=== PATIENT | male | born 1950 | race Caucasian/White ===

== ENCOUNTER → 2023-08-20 08:06 | Outpatient (REF) | payer OTHER, SELFPAY | LOC: RCS 08:06 | PROVIDERS: ATTENDING PHYSICIAN Internal Medicine Cardiovascular Disease; FAMILY PHYSICIAN Family Medicine | DX: I48.21 Permanent atrial fibrillation (principal) | CPT/HCPCS: 93306 ==

== ENCOUNTER 2024-06-18 14:20 | Emergency (ER) | payer OTHER, MEDICARE, SELFPAY ==
[2024-06-18 14:30] VITALS: BP 166/89
--- NOTE | 2024-06-18 14:32 | ED.GENMED ---
ED Provider Triage
<Moises Barragan PA-C - Last Filed: 06/18/24 14:33>
-
Patient seen by provider in Triage?: Seen in Triage
Attestation: A medical screening examination has been initiated by a qualified medical provider. Based on the assessment performed at this time, it has been determined that an emergent medical condition may exist and the patient has been informed
that further medical evaluation and possible additional diagnostic testing may be needed.
HPI: 73-year-old male presents with chest pain for 2 days. He has a history of A-fib has a Watchman device no longer anticoagulated. Pain is persistent over 2 days. He follows with cardiology here. Vital signs are stable. Chest x-ray EKG and
labs ordered
GENERAL: Alert , in no apparent distress
EYE: No visual abnormalities.
NECK: Trachea midline
ENT: No visible abnormalities.
LUNGS: No acute respiratory distress
NEUROLOGICAL: Alert and oriented
SKIN: Skin intact. No visible changes.
MUSCULOSKELETAL: Moving extremities normally
PSYCH: Normal and appropriate interaction.
This is a medical evaluation conducted in person to initiate diagnostic evaluation and provide initial therapeutics. Please see further documentation by the treating clinician.
History of Present Illness
<Moises Barragan PA-C - Last Filed: 06/18/24 14:33>
General
Chief Complaint: Chest Pain
Time Seen by Provider: 06/18/24 17:33
<Tanna Bosch PA-C - Last Filed: 06/18/24 18:35>
General
Source: patient
Exam Limitations: none
History of Present Illness
History of Present Illness:
73yoM with a history of atrial fibrillation with Watchman in place, hypertension, hyperlipidemia, diabetes, obesity, and COPD presenting with his for evaluation of chest discomfort. He reports intermittent left sided discomfort over the past 2
days. He states it feels like a 'squishing' sensation and like something is clogged and not moving right. He also describes it as feeling anxious and he admits to being under a lot of stress recently. Nothing seems to make the pain better or
worse. He has no pain currently. He denies any exertional or pleuritic pain. He reports some lightheadedness but denies any syncope. He is otherwise asymptomatic and denies any nausea, vomiting, diaphoresis, shortness of breath, abdominal pain,
leg swelling. Patient follows with Dr. Rosario.
Past History
<Moises Barragan PA-C - Last Filed: 06/18/24 14:33>
Past History
ED Past Medical History: Arrthythmia (Atrial fibrillation), Asthma, CHF, COPD, HTN, Hypercholesterolemia, IDDM and Other (Morbid obesity, sleep apnea, GI bleeding from Ulcers)
ED Past Surgical History: Cardiac (Cardiac catheterization with no significant obstructive disease) and Orthopedic (Bilateral knee replacements. Fusion of both ankles, )
Social History
Tobacco: Smoker (Cigars)
Alcohol: None
Personal:
Living: with family
Employment: Employed
Family History
Family History: Other (Noncontributory)
Phy Exam
<Tanna Bosch PA-C - Last Filed: 06/18/24 18:35>
General Physical Exam
General Presentation: well appearing and no apparent distress
General age: appears stated age
General Skin: warm and dry
General Habitus: normal
General Mental: alert
ENT Exam
ENT Exam: normocephalic
Cardiovascular Exam
Cardiovascular Exam: irregularly irregular and systolic murmur
Pulmonary Exam
Pulmonary Exam: lungs clear, no respiratory distress, no rales, no crackles, no rhonchi and no wheezing
Neurological Exam
Neurological Exam: alert
[place] Coma Scale
Eye Opening: Spontaneous
Verbal Response: Oriented
Motor Response: Obeys Commands
GCS Total Score: 15
Skin Exam
Skin Exam: normal color and warm/dry
Psychiatric Exam
Psychiatric Exam: normal mood/affect
Scores
<Tanna Bosch PA-C - Last Filed: 06/18/24 18:35>
Heart Score for Chest Pain Patients
STEMI patient?: No
History: Slightly or Non-Suspicious
ECG: Normal
Age: >/= 65 years
Risk Factors: >/= 3 Risk Factors or History of CAD
Troponin: </= Normal Limit
Heart Score for Chest Pain Patients: 4
Heart Score Risk: 20.3% MACE over next 6 weeks
Course
<Moises Barragan PA-C - Last Filed: 06/18/24 14:33>
Orders/Labs/Results
Orders:
Orders
06/18/24 14:30
Electrocardiogram (*1) Urgent
Reason for Study: Chest Pain
EKG- Treatment ONCE
06/18/24 14:31
CR Chest - 2 Views Urgent
Comment:
Reason For Exam: chest pain
06/18/24 17:21
Basic Metabolic Panel Urgent
Complete Blood Count/With Diff Urgent
Troponin I Urgent
Abnormal Lab Results
06/18/24
17:21
RBC 4.59 L 10^6/uL
(4.70-6.10)
Monocytes % 9.6 H %
(1.7-9.3)
Sodium 134 L mmol/L
(135-145)
Chloride 96 L mmol/L
(98-107)
BUN 27 H mg/dl
(9-20)
Glucose 221 H mg/dl
(70-99)
06/18/24 17:21
06/18/24 17:21
Vital Signs
Initial and Last Documented VS:
Initial Vital Signs
Temp Pulse Resp BP Pulse Ox
98.4 F 83 18 166/89 96
06/18/24 14:30 06/18/24 14:30 06/18/24 14:30 06/18/24 14:30 06/18/24 14:30
Last Documented Vital Signs
Temp Pulse Resp BP Pulse Ox
98.4 F 74 15 155/80 96
06/18/24 14:30 06/18/24 17:30 06/18/24 17:30 06/18/24 17:22 06/18/24 16:43
<Tanna Bosch PA-C - Last Filed: 06/18/24 18:35>
Orders/Labs/Results
Orders:
Orders
06/18/24 14:30
Electrocardiogram (*1) Urgent
Reason for Study: Chest Pain
EKG- Treatment ONCE
06/18/24 14:31
CR Chest - 2 Views Urgent
Comment:
Reason For Exam: chest pain
06/18/24 17:21
Basic Metabolic Panel Urgent
Complete Blood Count/With Diff Urgent
Troponin I Urgent
Abnormal Lab Results
06/18/24
17:21
RBC 4.59 L 10^6/uL
(4.70-6.10)
Monocytes % 9.6 H %
(1.7-9.3)
Sodium 134 L mmol/L
(135-145)
Chloride 96 L mmol/L
(98-107)
BUN 27 H mg/dl
(9-20)
Glucose 221 H mg/dl
(70-99)
06/18/24 17:21
06/18/24 17:21
Vital Signs
Initial and Last Documented VS:
Initial Vital Signs
Temp Pulse Resp BP Pulse Ox
98.4 F 83 18 166/89 96
06/18/24 14:30 06/18/24 14:30 06/18/24 14:30 06/18/24 14:30 06/18/24 14:30
Last Documented Vital Signs
Temp Pulse Resp BP Pulse Ox
98.4 F 74 15 155/80 96
06/18/24 14:30 06/18/24 17:30 06/18/24 17:30 06/18/24 17:22 06/18/24 16:43
<Tanna Bosch PA-C - Last Filed: 06/18/24 18:35>
MDM/Problems Addressed
Differential Diagnosis Includes:
73yoM here with chest discomfort x 2 days. Intermittent 'squishing' sensation. No exertional or pleuritic pain. No SOB. Admits to being under a lot of stress. He is mildly hypertensive with otherwise normal vitals. He is well appearing in no
distress. Differential diagnosis includes but is not limited to: ACS, angina, anxiety, pneumonia, pneumothorax, musculoskeletal, doubt PE
Initial ED plan: Check cardiac labs, EKG, and CXR.
<Tanna Bosch PA-C - Last Filed: 06/18/24 18:35>
*EKG
Interpreted by ED Provider?: Yes
EKG Intrepretation Date: 06/18/24
Heart Rate: 72
Rate: normal
Rhythm: a-fib
Christopher: normal axis
Interval: normal interval
QRS Pattern: right bundle branch block (incomplete)
Ischemia: no ischemia
*Critical Care Note
Total Time (30-74mins, 75-104mins- exclusive of procedures): Not Applicable
<Tanna Bosch PA-C - Last Filed: 06/18/24 18:35>
Update Note
Update Note:
EKG shows rate controlled A-fib without ischemic changes. Troponin within normal limits. Remainder of labs overall unremarkable. Chest x-ray is normal. Patient is asymptomatic without any active chest discomfort. No indication for
hospitalization at this time. Will discharge patient with plan for follow-up with chest pain hotline. ED return precautions discussed. Patient in agreement with plan and was discharged in stable condition.
ED Attending Note
<Moises Barragan PA-C - Last Filed: 06/18/24 14:33>
-
Portions of this chart may have been created with voice recognition software.� Occasional wrong word or��sound alike� substitutions may have occurred due to the inherent limitations of voice recognition software.
Discharge Plan
Departure
Patient Disposition: Home (Routine Discharge)
Date of Disposition: 06/18/24
Time of Disposition: 18:25
Patient with high blood pressure during this ER visit?: Yes
Discharge Problem:
Chest pain
Instructions: Chest Pain DCA Follow Up
Prescriptions:
No Action
atorvastatin 10 MG tablet
10 mg PO HS
metformin 1,000 MG tablet
1,000 mg PO QPM
albuterol sulfate 1 PUFF HFA aerosol inhaler
2 puff inhalation R Q4HPRN PRN (Reason: SHORTNESS OF BREATH)
furosemide 80 MG tablet
80 mg PO DAILY
captopril 25 MG tablet
25 mg PO BID Qty: 1 0RF
Trulicity 4.5 mg/0.5 mL Pen Injector
4.5 mg SC TH@18
Slow Fe 142 mg (45 mg iron) Tablet Extended Release
142 mg PO DAILY
fluticasone propion-salmeterol [Advair Diskus] 250-50 mcg/dose Blister With Device
1 inh INHALATION BID
ascorbic acid (vitamin C) 500 mg Tablet
1,000 mg PO DAILY
vitamin B complex Capsule
1 cap PO DAILY
cholecalciferol (vitamin D3) [Vitamin D3] 25 mcg (1,000 unit) Tablet
50 mcg PO DAILY
Eliquis 2.5 mg tablet
2.5 mg PO BID Qty: 180 3RF
Rx Instructions:
Please note lower dose
aspirin 81 mg capsule
81 mg PO DAILY Qty: 90 3RF
labetalol 100 mg Tablet
100 mg PO BID
Referrals:
Deandre Esqueda, [Family Provider] -
Activity Restrictions/Additional Instructions:
Please follow-up with your silverware cleaner. Return to the ER with any new or worsening symptoms.
Interventions
Interventions:
*Risk Screen - Suicide Last Done: 06/18/24 14:30
*General Assessment Last Done: 06/18/24 14:30
*Neglect/Abuse Screening Last Done: 06/18/24 17:22
*ED COVID-19 Vaccine History Last Done: 06/18/24 14:30
ED- Cardiac Assessment Last Done: 06/18/24 17:22
Discharge Date and Time
Print Language: ITALIAN
[2024-06-18 16:43] VITALS: BP 137/73
[2024-06-18 17:22] VITALS: BP 155/80
[2024-06-18 17:43] LABS: % Basophils 0.8 % (0-2); % Eosinophils 3.3 % (0-6); % Immature Granulocytes 0.3 % (0-0.5); % Lymphocytes 22.7 % (20.5-51.1); % Monocytes 9.6 % (1.7-9.3); % Neutrophils 63.3 % (42.2-75.2); Absolute Basophils 0.1 10^3/uL (0-0.2); Absolute Eosinophils 0.2 10^3/uL (0-0.7); Absolute Lymphocytes 1.4 10^3/uL (1.2-3.4); Absolute Monocytes 0.6 10^3/uL (0.1-0.6); Hematocrit 42.6 % (39.0-52.0); Hemoglobin 14.1 g/dL (13.0-18.0); Mean Corp Hgb Conc. 33.1 g/dL (33.0-37.0); Mean Corpuscular Hgb 30.7 pg (27.0-31.0); Mean Corpuscular Volume 92.8 fL (80.0-94.0); Mean Platelet Volume 9.2 fL (7.4-10.4); Nucleated Red Blood Cells % 0 % (-); Platelet Count 176 10^3/uL (130-400); Red Blood Cell Count 4.59 10^6/uL (4.70-6.10); Red Cell Dist. Width 12.5 % (11.5-14.5); White Blood Cell Count 6.3 10^3/uL (4.8-10.8)
[2024-06-18 17:50] LABS: Blood Urea Nitrogen 27 mg/dl (9-20); Carbon Dioxide 29 mmol/L (22-30); Chloride 96 mmol/L (98-107); Glucose 221 mg/dl (70-99); Sodium 134 mmol/L (135-145); eGFR > 60.00
[2024-06-18 17:55] LABS: Troponin I < 0.012 ng/ml
== END 2024-06-18 18:50 | disposition home or self-care (01) ==
LOC: EMR 14:20
PROVIDERS: Physician Assistant; EMERGENCY PHYSICIAN Emergency Medicine; FAMILY PHYSICIAN Family Medicine
DX: R07.89 Other chest pain (principal); I48.91 Unspecified atrial fibrillation; J44.89 Other specified chronic obstructive pulmonary disease; E11.9 Type 2 diabetes mellitus without complications; E78.00 Pure hypercholesterolemia, unspecified; G47.30 Sleep apnea, unspecified; I11.0 Hypertensive heart disease with heart failure; I50.9 Heart failure, unspecified; F17.290 Nicotine dependence, other tobacco product, uncomplicated; Z79.4 Long term (current) use of insulin
CPT/HCPCS: 99285; 71046; 80048; 84484; 85025; 93005